=== PATIENT | female | born 1995 | race Two or more races ===

== ENCOUNTER 2021-03-19 15:55 | Observation (INO) | payer MEDICAID ==
[~2021-03-19] VITALS: Ht 160 cm; Wt 99.8 kg
[2021-03-19] MEDS ORDERED: PREN-96 PO (16:40)
[2021-03-19] MEDS ORDERED: NIFEdipine 10 MG CAP PO STA (18:05)
[2021-03-19] MEDS ORDERED: NIF10C PO (18:20)
[2021-03-19] MEDS ORDERED: NIF10C GT (18:55)
== END 2021-03-19 19:10 | disposition home or self-care (01) ==
LOC: LDRP 15:55
PROVIDERS: ADMIT Obstetrics & Gynecology; ATTEND Obstetrics & Gynecology
DX: O26.872 Cervical shortening, second trimester (principal); O60.02 Preterm labor without delivery, second trimester; O99.332 Smoking (tobacco) complicating pregnancy, second trimester; F17.200 Nicotine dependence, unspecified, uncomplicated; Z3A.25 25 weeks gestation of pregnancy
CPT/HCPCS: 59025; 76817; 81002; G0378

== ENCOUNTER 2021-03-26 11:32 | Observation (INO) | payer MEDICAID ==
[~2021-03-26 11:32] MED LIST: NIF10C GT; NIF10C PO; PREN-96 PO
== END 2021-03-26 12:50 | disposition home or self-care (01) ==
LOC: LDRP 11:32
PROVIDERS: ADMIT Obstetrics & Gynecology; ATTEND Obstetrics & Gynecology
DX: O60.02 Preterm labor without delivery, second trimester (principal); O99.332 Smoking (tobacco) complicating pregnancy, second trimester; F17.200 Nicotine dependence, unspecified, uncomplicated; Z3A.26 26 weeks gestation of pregnancy
CPT/HCPCS: 59025; 76815; 81002; 94762; G0378

== ENCOUNTER 2021-03-31 11:30 | Observation (INO) | payer MEDICAID | END 2021-03-31 12:39 | disposition home or self-care (01) | LOC: LDRP 11:30 | PROVIDERS: ADMIT Obstetrics & Gynecology; ATTEND Obstetrics & Gynecology | DX: O60.02 Preterm labor without delivery, second trimester (principal); O26.872 Cervical shortening, second trimester; Z3A.27 27 weeks gestation of pregnancy | CPT/HCPCS: 59025; 76815; 81002; 94760; G0378 ==

== ENCOUNTER 2021-04-07 09:50 | Observation (INO) | payer MEDICAID ==
[~2021-04-07] VITALS: Ht 160 cm; Wt 101.6 kg
== END 2021-04-07 10:57 | disposition home or self-care (01) ==
LOC: LDRP 09:50
PROVIDERS: ADMIT Obstetrics & Gynecology; ATTEND Obstetrics & Gynecology
DX: O24.419 Gestational diabetes mellitus in pregnancy, unspecified control (principal); O60.03 Preterm labor without delivery, third trimester; Z3A.28 28 weeks gestation of pregnancy
CPT/HCPCS: 59025; 76817; 76818; 81002; 94760; G0378

== ENCOUNTER 2021-04-21 09:38 | Observation (INO) | payer MEDICAID ==
[~2021-04-21 09:38] MED LIST changes: -NIF10C GT
== END 2021-04-21 11:25 | disposition home or self-care (01) ==
LOC: LDRP 09:38
PROVIDERS: ADMIT Obstetrics & Gynecology; ATTEND Obstetrics & Gynecology
DX: O24.419 Gestational diabetes mellitus in pregnancy, unspecified control (principal); Z3A.30 30 weeks gestation of pregnancy
CPT/HCPCS: 59025; 76818; 81002; 82962; 94760; G0378

== ENCOUNTER 2021-04-29 17:19 | Observation (INO) | payer MEDICAID | END 2021-04-29 19:25 | disposition home or self-care (01) | LOC: LDRP 17:19 | PROVIDERS: ADMIT Obstetrics & Gynecology; ATTEND Obstetrics & Gynecology | DX: O60.03 Preterm labor without delivery, third trimester (principal); O26.873 Cervical shortening, third trimester; O24.419 Gestational diabetes mellitus in pregnancy, unspecified control; Z3A.31 31 weeks gestation of pregnancy | CPT/HCPCS: 59025; 76817; 76818; 81002; 82948; 82962; 94760; G0378; G0379 ==

== ENCOUNTER 2021-05-05 09:32 | Observation (INO) | payer MEDICAID | END 2021-05-05 11:55 | disposition home or self-care (01) | LOC: LDRP 09:32 | PROVIDERS: ADMIT Obstetrics & Gynecology; ATTEND Obstetrics & Gynecology | DX: O24.410 Gestational diabetes mellitus in pregnancy, diet controlled (principal); O60.03 Preterm labor without delivery, third trimester; Z3A.32 32 weeks gestation of pregnancy; Z79.899 Other long term (current) drug therapy | CPT/HCPCS: 59025; 76818; 81002; 82948; 82962; 94760; G0378 ==

== ENCOUNTER 2021-05-12 15:37 | Observation (INO) | payer MEDICAID | END 2021-05-12 18:25 | disposition home or self-care (01) | LOC: LDRP 16:34 | PROVIDERS: ADMIT Obstetrics & Gynecology; ATTEND Obstetrics & Gynecology | DX: O60.03 Preterm labor without delivery, third trimester (principal); O24.410 Gestational diabetes mellitus in pregnancy, diet controlled; O26.873 Cervical shortening, third trimester; Z3A.33 33 weeks gestation of pregnancy | CPT/HCPCS: 59025; 76817; 76818; 81002; 82948; 82962; 94760; G0378 ==

== ENCOUNTER 2021-05-19 10:00 | Observation (INO) | payer MEDICAID ==
[~2021-05-19] VITALS: Ht 160 cm; Wt 108.4 kg
[2021-05-19] MEDS ORDERED: NIFEdipine 10 MG CAP PO ONE (11:45)
== END 2021-05-19 12:18 | disposition home or self-care (01) ==
LOC: LDRP 10:00
PROVIDERS: ADMIT Obstetrics & Gynecology; ATTEND Obstetrics & Gynecology
DX: O24.419 Gestational diabetes mellitus in pregnancy, unspecified control (principal); O60.03 Preterm labor without delivery, third trimester; O26.873 Cervical shortening, third trimester; Z3A.34 34 weeks gestation of pregnancy
CPT/HCPCS: 59025; 76817; 76818; 81002; 82948; 82962; 94760; G0378

== ENCOUNTER 2021-05-26 09:29 | Observation (INO) | payer MEDICAID | END 2021-05-26 10:44 | disposition home or self-care (01) | LOC: LDRP 09:29 | PROVIDERS: ADMIT Obstetrics & Gynecology; ATTEND Obstetrics & Gynecology | DX: O60.03 Preterm labor without delivery, third trimester (principal); O24.415 Gestational diabetes mellitus in pregnancy, controlled by oral hypoglycemic drugs; O26.873 Cervical shortening, third trimester; Z3A.35 35 weeks gestation of pregnancy | CPT/HCPCS: 59025; 81002; G0378 ==

== ENCOUNTER 2021-06-02 09:29 | Observation (INO) | payer MEDICAID | END 2021-06-02 10:55 | disposition home or self-care (01) | LOC: LDRP 09:29 | PROVIDERS: ADMIT Obstetrics & Gynecology; ATTEND Obstetrics & Gynecology | DX: O24.419 Gestational diabetes mellitus in pregnancy, unspecified control (principal); O60.03 Preterm labor without delivery, third trimester; O26.873 Cervical shortening, third trimester; Z3A.36 36 weeks gestation of pregnancy | CPT/HCPCS: 59025; 81002; 82948; 82962; 94760; G0378; G0379 ==

== ENCOUNTER 2021-06-04 07:45 | Observation (INO) | payer MEDICAID ==
[~2021-06-04] VITALS: Ht 170.2 cm; Wt 108.4 kg
[2021-06-04 08:49] LABS: Protein, Urine 21.1 mg/dL (0.0-11.9)
[2021-06-04 10:30] LABS: Urine Bacteria FEW /hpf (None Seen); Urine Blood Negative /uL (Negative); Urine Specific Gravity 1.009 (1.001-1.035); Urine WBC 1 /hpf (0 - 5)
[2021-06-04 10:40] LABS: Protein, Urine 12.6 mg/dL (0.0-11.9)
[2021-06-04] MEDS ORDERED: GLYB2.5T8 PO (11:10)
== END 2021-06-04 11:17 | disposition home or self-care (01) ==
LOC: LDRP 07:45
PROVIDERS: ADMIT Obstetrics & Gynecology; ATTEND Obstetrics & Gynecology
DX: O24.415 Gestational diabetes mellitus in pregnancy, controlled by oral hypoglycemic drugs (principal); O60.03 Preterm labor without delivery, third trimester; O26.873 Cervical shortening, third trimester; Z3A.36 36 weeks gestation of pregnancy
CPT/HCPCS: 59025; 76817; 76818; 81001; 81002; 82570; 82948; 82962; 84156; 94760; G0378; G0379

== ENCOUNTER 2021-06-09 10:12 | Observation (INO) | payer MEDICAID ==
[~2021-06-09 10:12] MED LIST changes: +GLYB2.5T8 PO
== END 2021-06-09 11:35 | disposition home or self-care (01) ==
LOC: LDRP 10:12
PROVIDERS: ADMIT Obstetrics & Gynecology; ATTEND Obstetrics & Gynecology
DX: O24.419 Gestational diabetes mellitus in pregnancy, unspecified control (principal); O26.873 Cervical shortening, third trimester; O62.9 Abnormality of forces of labor, unspecified; Z3A.37 37 weeks gestation of pregnancy
CPT/HCPCS: 59025; 81002; 82948; 82962; 94760; G0378

== ENCOUNTER 2021-06-12 14:10 | Observation (INO) | payer MEDICAID ==
[~2021-06-12] VITALS: Ht 160 cm; Wt 108.0 kg
[~2021-06-12 14:10] MED LIST changes: -NIF10C PO
[2021-06-12] MEDS: LACTATED RINGER'S 1,000 ML IV SCH ×2 (17:25→20:32)
[2021-06-13 07:06] LABS: RPR Non Reactive (Non Reactive)
== END 2021-06-12 21:02 | disposition home or self-care (01) ==
LOC: LDRP 14:10
PROVIDERS: ADMIT Obstetrics & Gynecology; ATTEND Obstetrics & Gynecology
DX: O24.419 Gestational diabetes mellitus in pregnancy, unspecified control (principal); O26.873 Cervical shortening, third trimester; Z3A.38 38 weeks gestation of pregnancy
CPT/HCPCS: 36415; 59025; 76818; 81002; 82948; 82962; 83036; 86592; 94760; 96360; 96361; G0378; G0379

== ENCOUNTER 2021-06-13 19:33 | Observation (INO) | payer MEDICAID ==
[~2021-06-13] VITALS: Ht 160 cm; Wt 108.0 kg
[2021-06-13 22:40] LABS: Basophils # (auto) 0.1 10 ^3/uL (0-0.2); Eosinophils # (auto) 0.2 10 ^3/uL (0-0.8); Eosinophils % (auto) 1.7 % (0.0-7.0); Hematocrit 36.5 % (36.0-46.0); Hemoglobin 12.6 g/dL (12.2-16.2); Lymphocytes # (auto) 2.8 10 ^3/uL (0.4-5.4); Lymphocytes % (auto) 28.2 % (10.0-50.0); Mean Corpuscular Hemoglobin 30.2 pg (28.0-32.0); Mean Corpuscular Hgb Conc. 34.4 g/dL (32.0-36.0); Mean Corpuscular Volume 87.6 fL (80.0-100.0); Monocytes # (auto) 0.7 10 ^3/uL (0-1.3); Neutrophils # (auto) 6.2 10 ^3/uL (1.6-8.6); Neutrophils % (auto) 62.1 % (37.0-80.0); Red Blood Cells 4.16 10^6/uL (4.0-5.20); Red Cell Distribution Width 13.2 % (11.8-14.3); White Blood Cell 9.9 10^3/uL (4.4-10.8)
[2021-06-13 22:50] LABS: Urine Bacteria FEW /hpf (None Seen); Urine Blood Negative /uL (Negative); Urine Specific Gravity 1.027 (1.001-1.035); Urine WBC 3 /hpf (0 - 5)
[2021-06-13 22:57] LABS: INR 0.89 (0.9-1.15); Partial Thromboplastin Time 25.8 sec (23.6-33.0)
[2021-06-13 23:06] LABS: Potassium 4.1 mmol/L (3.5-5.1)
[2021-06-13 23:11] LABS: Albumin 2.5 g/dL (3.4-5.0); BUN/Creatinine Ratio 18.3; Uric Acid 6.7 mg/dL (2.6-6.0)
[2021-06-13 23:23] LABS: Bilirubin, Total 0.2 mg/dL (0.2-1.0); Total Protein 6.6 g/dL (6.4-8.2)
[2021-06-13 23:34] LABS: Protein, Urine 70.2 mg/dL (0.0-11.9)
== END 2021-06-13 23:55 | disposition home or self-care (01) ==
LOC: LDRP 19:33
PROVIDERS: ADMIT Obstetrics & Gynecology; ATTEND Obstetrics & Gynecology
DX: O24.419 Gestational diabetes mellitus in pregnancy, unspecified control (principal); O26.873 Cervical shortening, third trimester; O26.893 Other specified pregnancy related conditions, third trimester; R10.9 Unspecified abdominal pain; Z3A.38 38 weeks gestation of pregnancy
CPT/HCPCS: 36415; 59025; 76818; 80053; 81001; 81002; 82570; 82948; 82962; 84156; 84550; 85025; 85379; 85610; 85730; 94760; G0378; G0379

== ENCOUNTER 2021-06-15 07:12 | Observation (INO) | payer MEDICAID ==
[2021-06-15 12:30] LABS: Basophils # (auto) 0.1 10 ^3/uL (0-0.2); Basophils % (auto) 0.6 % (0.0-2.0); Eosinophils # (auto) 0.2 10 ^3/uL (0-0.8); Eosinophils % (auto) 1.6 % (0.0-7.0); Hematocrit 38.4 % (36.0-46.0); Hemoglobin 13.2 g/dL (12.2-16.2); Lymphocytes # (auto) 1.9 10 ^3/uL (0.4-5.4); Lymphocytes % (auto) 20.2 % (10.0-50.0); Mean Corpuscular Hgb Conc. 34.3 g/dL (32.0-36.0); Mean Corpuscular Volume 87.6 fL (80.0-100.0); Monocytes # (auto) 0.5 10 ^3/uL (0-1.3); Monocytes % (auto) 5.3 % (0.0-12.0); Neutrophils # (auto) 6.8 10 ^3/uL (1.6-8.6); Neutrophils % (auto) 72.3 % (37.0-80.0); Nucleated Red Blood Cells % 0.1 %; Red Blood Cells 4.39 10^6/uL (4.0-5.20); Red Cell Distribution Width 13.5 % (11.8-14.3); White Blood Cell 9.4 10^3/uL (4.4-10.8)
[2021-06-15 12:42] LABS: Urine Bacteria FEW /hpf (None Seen); Urine Blood Negative /uL (Negative); Urine Specific Gravity 1.015 (1.001-1.035); Urine WBC 6 /hpf (0 - 5)
[2021-06-15 12:43] LABS: Albumin 2.5 g/dL (3.4-5.0); Calcium 8.5 mg/dL (8.5-10.1); Potassium 3.9 mmol/L (3.5-5.1)
[2021-06-15 12:47] LABS: BUN/Creatinine Ratio 15.4; Bilirubin, Total 0.2 mg/dL (0.2-1.0); Total Protein 6.7 g/dL (6.4-8.2); Uric Acid 5.9 mg/dL (2.6-6.0)
[2021-06-15 12:51] LABS: INR 0.89 (0.9-1.15); Partial Thromboplastin Time 25.9 sec (23.6-33.0)
[2021-06-15 13:22] LABS: Protein, Urine 50.2 mg/dL (0.0-11.9)
== END 2021-06-15 14:00 | disposition home or self-care (01) ==
LOC: LDRP 11:00
PROVIDERS: ADMIT Obstetrics & Gynecology; ATTEND Obstetrics & Gynecology
DX: O24.415 Gestational diabetes mellitus in pregnancy, controlled by oral hypoglycemic drugs (principal); O13.3 Gestational [pregnancy-induced] hypertension without significant proteinuria, third trimester; Z3A.38 38 weeks gestation of pregnancy
CPT/HCPCS: 36415; 59025; 76818; 80053; 81001; 81002; 82570; 82948; 82962; 84156; 84550; 85025; 85610; 85730; 94760; G0378

== ENCOUNTER 2021-06-17 07:20 | Inpatient (IN) | payer MEDICAID ==
[~2021-06-17] VITALS: Ht 30.5 cm; Wt 0.5 kg
[2021-06-17] VITALS (8 sets, daily range): BP systolic 111–137; BP diastolic 56–72
[2021-06-17 11:21] LABS: Basophils # (auto) 0.1 10 ^3/uL (0-0.2); Basophils % (auto) 0.6 % (0.0-2.0); Eosinophils # (auto) 0 10 ^3/uL (0-0.8); Eosinophils % (auto) 0.3 % (0.0-7.0); Hematocrit 37.8 % (36.0-46.0); Hemoglobin 12.9 g/dL (12.2-16.2); Lymphocytes # (auto) 2.1 10 ^3/uL (0.4-5.4); Lymphocytes % (auto) 18.6 % (10.0-50.0); Mean Corpuscular Hemoglobin 30.2 pg (28.0-32.0); Mean Corpuscular Hgb Conc. 34.1 g/dL (32.0-36.0); Mean Corpuscular Volume 88.6 fL (80.0-100.0); Monocytes # (auto) 0.6 10 ^3/uL (0-1.3); Monocytes % (auto) 5.6 % (0.0-12.0); Neutrophils # (auto) 8.6 10 ^3/uL (1.6-8.6); Neutrophils % (auto) 74.9 % (37.0-80.0); Red Blood Cells 4.26 10^6/uL (4.0-5.20); Red Cell Distribution Width 13.3 % (11.8-14.3); White Blood Cell 11.5 10^3/uL (4.4-10.8)
[2021-06-17 11:44] LABS: Albumin 2.6 g/dL (3.4-5.0); Calcium 8.9 mg/dL (8.5-10.1); Potassium 3.9 mmol/L (3.5-5.1); Uric Acid 6.1 mg/dL (2.6-6.0)
[2021-06-17 11:48] LABS: BUN/Creatinine Ratio 17.5; Bilirubin, Total 0.2 mg/dL (0.2-1.0); Total Protein 6.8 g/dL (6.4-8.2)
[2021-06-17 12:05] LABS: INR 0.9 (0.9-1.15); Partial Thromboplastin Time 25.8 sec (23.6-33.0)
[2021-06-17 12:34] LABS: Urine Bacteria NONE SEEN /hpf (None Seen); Urine Blood TRACE /uL (Negative); Urine Specific Gravity 1.016 (1.001-1.035); Urine WBC 5 /hpf (0 - 5)
[2021-06-17 12:47] LABS: Amphetamine Screen, Urine NEGATIVE (NEGATIVE); Barbiturate Scree,Urine NEGATIVE (NEGATIVE); Benzodiazephine Screen, Urine NEGATIVE (NEGATIVE); Cannabinoid Screen, Urine NEGATIVE (NEGATIVE); Cocaine Screen, Urine NEGATIVE (NEGATIVE); Opiate Scree,Urine NEGATIVE (NEGATIVE); Phencyclidine Screen, Urine NEGATIVE (NEGATIVE)
[2021-06-17 12:48] LABS: Protein, Urine 75.2 mg/dL (0.0-11.9)
[2021-06-17] MEDS ORDERED: LACT. RINGERS/OXYTOCIN 20UNITS 500 ML IV ONE ×2 (13:30→14:00)
[2021-06-17] MEDS ORDERED: DERMOPLAST 60ML BOTTLE TOP PRN (13:30)
[2021-06-17] MEDS ORDERED: PHISODERM TOP SOLN 240ML BTL TOP PRN (13:30)
[2021-06-17] MEDS ORDERED: LIDOCAINE 2%HCL (LOCAL ANESTH.) INJ 20ML MDV IJ PRN (13:30)
[2021-06-17] MEDS ORDERED: LACT. RINGERS/OXYTOCIN 20UNITS 1,000 ML IV SCH (13:30)
[2021-06-17] MEDS ORDERED: TERBUTALINE SULFATE 1 MG/ML 1ML VIAL SC PRN (13:30)
[2021-06-17] MEDS ORDERED: BUTORPHANOL TARTRATE 2 MG/1 ML VIAL IV PRN ×2 (13:30)
[2021-06-17] MEDS ORDERED: WITCH HAZEL-GLYCERIN PAD TOP PRN (13:30)
[2021-06-17] MEDS ORDERED: PROMETHAZINE HCL 25 MG/ML 1ML IV PRN (13:30)
[2021-06-17] MEDS: LACTATED RINGER'S 1,000 ML IV SCH ×2 (14:32→17:03)
[2021-06-17] MEDS ORDERED: LIDOCAINE HCL 2 %PF INJ 10ML AMP IJ ONE (16:00)
[2021-06-17] MEDS ORDERED: ePHEDrine SULFATE 50 MG/ML AMP IV ONE (16:00)
[2021-06-17] MEDS ORDERED: NALOXONE HCL 0.4 MG/ML VIAL IV ONE (16:00)
[2021-06-17] MEDS ORDERED: fentaNYL CITRATE 100 MCG/2 ML VL IV ONE (16:00)
[2021-06-17] MEDS ORDERED: ROPIVACAINE HCL 200 ML EPI SCH ×2 (16:00→17:00)
[2021-06-17] MEDS ORDERED: TETRACAINE 1% INJ 2 ML VIAL IJ ONE (17:21)
[2021-06-17] MEDS ORDERED: MORPHINE SULF PF 2 MG/2 ML SYRG ONE (17:23)
[2021-06-17] MEDS ORDERED: fentaNYL CITRATE 100 MCG/2 ML VL ONE (17:23)
[2021-06-17] MEDS ORDERED: ceFAZolin 1GM/50ML 50 ML IV ONE (17:30)
[2021-06-17] MEDS ORDERED: LACTATED RINGER'S 1,000 ML IV ONE (17:30)
[2021-06-17] MEDS ORDERED: SODIUM CITR/CITRIC ACID ORAL SOLN 30 ML ONE (17:38)
[2021-06-17] MEDS ORDERED: SODIUM CITR/CITRIC ACID ORAL SOLN 30 ML PO ONE (17:45)
[2021-06-17] MEDS ORDERED: LACT. RINGERS/OXYTOCIN 20UNITS 1,000 ML IV ONE (17:45)
[2021-06-17] MEDS ORDERED: ONDANSETRON HCL 4 MG/2 ML VIAL IV PRN ×2 (17:45→19:15)
[2021-06-17] MEDS ORDERED: MORPHINE SULFATE 4 MG/ML SYR/VIAL IV PRN (17:45)
[2021-06-17] MEDS ORDERED: HYDROmorphone HCL 2 MG/ML VL IV PRN ×2 (19:15→21:00)
[2021-06-17] MEDS ORDERED: NALOXONE HCL 0.4 MG/ML VIAL IV PRN (19:15)
[2021-06-17] MEDS ORDERED: diphenhdrAMINE HCL 50 MG/1 ML VL IV PRN (19:15)
[2021-06-17] MEDS ORDERED: NALBUPHINE HCL 10 MG/1ml INJECTION SUBCUT ONE (19:15)
[2021-06-17] MEDS ORDERED: KETOROLAC TROMETH 30 MG/ML 1ML VIAL IV PRN (19:15)
[2021-06-17] MEDS ORDERED: DexAMETHasone SOD PHOS 10MG/1ML VIAL INJ IV PRN (19:15)
[2021-06-17] MEDS ORDERED: GUM (CHEWING) 1 GUM CHEW CHEW ONE (22:15)
[2021-06-17 23:47] LABS: Basophils # (auto) 0.1 10 ^3/uL (0-0.2); Basophils % (auto) 1.2 % (0.0-2.0); Eosinophils # (auto) 0 10 ^3/uL (0-0.8); Hematocrit 38.2 % (36.0-46.0); Hemoglobin 12.6 g/dL (12.2-16.2); Lymphocytes % (auto) 16.3 % (10.0-50.0); Mean Corpuscular Hemoglobin 29.1 pg (28.0-32.0); Mean Corpuscular Volume 88.4 fL (80.0-100.0); Monocytes # (auto) 0.6 10 ^3/uL (0-1.3); Monocytes % (auto) 5.3 % (0.0-12.0); Neutrophils # (auto) 9.3 10 ^3/uL (1.6-8.6); Neutrophils % (auto) 77.2 % (37.0-80.0); Red Blood Cells 4.32 10^6/uL (4.0-5.20); Red Cell Distribution Width 13.3 % (11.8-14.3); White Blood Cell 12.1 10^3/uL (4.4-10.8)
[2021-06-18] VITALS (18 sets, daily range): BP systolic 112–140; BP diastolic 52–84
[2021-06-18] MEDS: ceFAZolin 1GM/50ML 50 ML IV SCH ×3 (01:45→09:50)
[2021-06-18] MEDS: ACETAMINOPHEN IV 1000 MG/100ML (10MG/ML) IV PRN ×2 (03:51→15:50)
[2021-06-18] MEDS: LACTATED RINGER'S 1,000 ML IV SCH ×4 (03:51→15:55)
[2021-06-18 06:28] LABS: Basophils # (auto) 0.1 10 ^3/uL (0-0.2); Basophils % (auto) 0.5 % (0.0-2.0); Eosinophils # (auto) 0 10 ^3/uL (0-0.8); Eosinophils % (auto) 0.4 % (0.0-7.0); Hemoglobin 12.2 g/dL (12.2-16.2); Lymphocytes # (auto) 2.4 10 ^3/uL (0.4-5.4); Mean Corpuscular Hemoglobin 29.9 pg (28.0-32.0); Mean Corpuscular Volume 87.9 fL (80.0-100.0); Monocytes # (auto) 0.8 10 ^3/uL (0-1.3); Monocytes % (auto) 6.4 % (0.0-12.0); Neutrophils # (auto) 8.6 10 ^3/uL (1.6-8.6); Neutrophils % (auto) 72.7 % (37.0-80.0); Red Blood Cells 4.09 10^6/uL (4.0-5.20); Red Cell Distribution Width 13.3 % (11.8-14.3); White Blood Cell 11.9 10^3/uL (4.4-10.8)
[2021-06-18 08:06] LABS: RPR Non Reactive (Non Reactive)
[2021-06-18] MEDS ORDERED: DOCU-94 PO (09:22)
[2021-06-18] MEDS ORDERED: IBUP800T27 PO (09:22)
[2021-06-18] MEDS ORDERED: HYDR-4902 PO (09:22)
[2021-06-18] MEDS ORDERED: HYDROcodone-ACET 5/325MG TAB PO PRN (19:30)
[2021-06-18] MEDS: IBUPROFEN 800 MG TAB PO PRN (19:45)
[2021-06-18] MEDS: SIMETHICONE 80 MG CHEWABLE TABLET PO SCH (22:06)
[2021-06-18] MEDS: DOCUSATE SOD 100 MG CAP PO SCH (22:06)
[2021-06-19 03:00] VITALS: BP 120/67
[2021-06-19] MEDS: IBUPROFEN 800 MG TAB PO PRN ×3 (05:34→22:28)
[2021-06-19] MEDS: SIMETHICONE 80 MG CHEWABLE TABLET PO SCH ×4 (05:34→22:27)
[2021-06-19 07:30] VITALS: BP 129/82
[2021-06-19] MEDS: HYDROcodone-ACET 5/325MG TAB PO PRN ×2 (10:46→17:04)
[2021-06-19] MEDS: DOCUSATE SOD 100 MG CAP PO SCH ×2 (10:46→22:27)
[2021-06-19 11:30] VITALS: BP 126/78
[2021-06-19 14:30] VITALS: BP 127/71
[2021-06-19 19:00] VITALS: BP 137/69
[2021-06-19] MEDS ORDERED: BISACODYL 10 MG RECT SUPP PR ONE (22:30)
[2021-06-19 23:00] VITALS: BP 142/80
[2021-06-20 03:00] VITALS: BP 133/67
[2021-06-20] MEDS: HYDROcodone-ACET 5/325MG TAB PO PRN (05:31)
[2021-06-20] MEDS: SIMETHICONE 80 MG CHEWABLE TABLET PO SCH (05:31)
[2021-06-20 07:00] VITALS: BP 117/71
== END 2021-06-20 10:45 | disposition home or self-care (01) | DRG 540 ==
LOC: UNDOADMOB 07:20 → LDRP 07:20 → OBSVTOIN 13:19 → INTOOBSV 13:19 → LDRP 13:20 → OBSVTOIN 19:59
PROVIDERS: ADMIT Obstetrics & Gynecology; ATTEND Obstetrics & Gynecology
PROC: 10D00Z1 Extraction of Products of Conception, Low, Open Approach (ICD-10-PCS; principal; 2021-06-17 17:50)
DX: O24.429 Gestational diabetes mellitus in childbirth, unspecified control (principal); O76 Abnormality in fetal heart rate and rhythm complicating labor and delivery; Z20.822 Contact with and (suspected) exposure to COVID-19; Z3A.38 38 weeks gestation of pregnancy; Z37.0 Single live birth
CPT/HCPCS: 36415; 59025; 62282; 76818; 80053; 80307; 81001; 81002; 82570; 82948; 82962; 84156; 84550; 85025; 85384; 85610; 85730; 86592; 86850; 86900; 86901; 87426; 94760; 94762; 96360; 96361; 96374; G0378; J0131; J0690; J2590